=== PATIENT | female | born 1985 | race Caucasian/White ===

== ENCOUNTER 2022-07-13 08:28 | Outpatient (CLI) | payer OTHER ==
[~2022-07-13 08:28] MED LIST: ULTRACET PO; ZITHROMAX TRI-500 MG PO
== END 2022-07-13 08:31 | disposition home or self-care (01) ==
LOC: SONOGRAMA 08:28
PROVIDERS: ATTEND Obstetrics & Gynecology
DX: D28.0 Benign neoplasm of vulva (principal)